=== PATIENT | male | born 1940 | race Caucasian/White ===

== ENCOUNTER 2025-03-13 04:55 | Inpatient (IN) | payer MEDICARE, MEDICAID, SELFPAY ==
[2025-03-13] VITALS (8 sets, daily range): BP systolic 157–179; BP diastolic 53–68; PULSE 51–80; RESP 17–30; TEMP 36.3–37.2; O2SAT 93–96; BMI 21.4
--- NOTE | 2025-03-13 05:10 | PD.EDRME ---
Rapid Medical Screening Exam E Arrival date/time: 03/13/25 04:55 RME Narrative: 84-year-old male without significant past medical history complains of a 4-day history of progressive shortness of breath. Some anterior lower chest pressure as well. No cardiac history. Patient has no significant past medical history. He does smoke cigarettes. He has never been diagnosed with emphysema. Exam: Somewhat dyspneic with distant breath sounds bilaterally Clinical Impression: Possible COPD versus pneumonia versus new onset CHF versus acute coronary syndrome versus pulmonary hypertension
--- NOTE | 2025-03-13 05:11 | EKG_ITS ---
[facility] Test Date: 2025-03-13 Pat Name: DUANE MENDEZ Department: Room: - Gender: Male Biological Science Technician: : 1940 Requested By: Duane Meyer Order Number: [id number] Reading MD: Duane Meyer Measurements Intervals [place] Rate: 51 P: AK: QRS: 41 QRSD: 75 T: 58 QT: 433 QTc: 401 Interpretive Statements SUPRAVENTRICULAR BRADYCARDIA MINIMAL VOLTAGE CRITERIA FOR LVH, CONSIDER NORMAL VARIANT [MEETS CRITERIA IN ONE OF: R(aVL), S(V1), R(V5), R(V5/V6)+S(V1)] SEPTAL MYOCARDIAL INFARCTION , OF INDETERMINATE AGE [40+ ms Q WAVE IN V1/V2] Compared to ECG 02/14/2023 09:32:03 Myocardial infarct finding now present Sinus rhythm no longer present /store/S0/[id number].pdf
--- NOTE | 2025-03-13 05:11 | XR_ITS ---
EXAMINATION: AP chest single view TECHNIQUE: AP portable upright chest single view Date and time: March 13, 2025, 0525 hours INDICATIONS: Chest pain today FINDINGS: Mild to moderate CHF Mild to moderate enlargement left ventricle Prominent vascular congestion including central vascular engorgement Diffuse interstitial pulmonary edema Severe osteopenia with old appearing deformity proximal humerus on the right IMPRESSION: Mild to moderate CHF
[2025-03-13 05:44] LABS: Basophils # (Auto) 0.1 Thou/mm3 (0.0-0.2); Basophils % (Auto) 1 % (0-2.5); Eosinophils # (Auto) 0.1 Thou/mm3 (0.0-0.5); Eosinophils % (Auto) 1 % (0-10); Hematocrit 33.8 % (41.0-53.0); Hemoglobin 10.9 g/dL (13.5-16.0); Immature Granulocytes Auto 0.03 Thou/mm3 (0.00-0.00); Lymphocytes # (Auto) 1.8 Thou/mm3 (1.0-4.8); Lymphocytes % (Auto) 17 % (10-50); Mean Corpuscular HGB Conc 32.2 g/dl (31.0-37.0); Mean Corpuscular Hemoglobin 31.1 pg (25.0-35.0); Mean Corpuscular Volume 97 fL (80-100); Monocytes # (Auto) 1.1 Thou/mm3 (0.0-0.8); Monocytes % (Auto) 10 % (0-12); Neutrophils # (Auto) 7.5 Thou/mm3 (1.8-7.7); Neutrophils % (Auto) 71 % (37-80); Nucleated Red Blood Cell # 0.00 Thou/mm3 (0.00-0.00); Nucleated Red Blood Cell % 0 /100 WBC (0); Platelet Count 317 Thou/mm3 (140-440); RDW Standard Deviation 46.8 fL (35.1-43.9); Red Blood Count 3.50 Miln/mm3 (4.50-5.90); White Blood Count 10.5 Thou/mm3 (3.8-10.6)
[2025-03-13 06:31] LABS: Alanine Aminotransferase 33 U/L (10-49); Albumin, Serum 4.3 gm/dL (3.4-4.8); Anion Gap 9 (7-16); Aspartate Amino Transferase 37 U/L (0-34); B-Type Natriuretic Peptide 1671 pg/mL (0-100); BUN/Creatinine Ratio 21 Ratio (12-20); Bilirubin,Total 0.4 mg/dL (0.3-1.2); Blood Urea Nitrogen 32 mg/dL (9-23); Calcium 9.4 mg/dL (8.3-10.6); Calcium (Corrected) 9.4 mg/dL (8.5-10.1); Carbon Dioxide 23.0 mMol/L (20.0-31.0); Chloride 102 mMol/L (98-107); Creatinine (Component) 1.5 mg/dL (0.6-1.3); Estimated Creatinine Clearance 34.1 mL/min (>60); Glucose 119 mg/dL (74-106); Osmolality,Calculated 276 (275-295); Potassium 5.2 mMol/L (3.4-5.1); Sodium 134 mMol/L (136-145); Total Protein 7.3 gm/dL (5.7-8.2); eGFR 46 See Note
[2025-03-13 06:32] LABS: Albumin/Globulin Ratio 1.4 (1.2-2.2); Alkaline Phosphatase 78 U/L (46-116); Globulin 3.0 gm/dL (2.3-3.5); Thyroid Stimulating Hormone 3.06 uIU/mL (0.55-4.78)
[2025-03-13 06:41] LABS: Troponin I 0.861 ng/mL (0.0-0.045)
--- NOTE | 2025-03-13 06:53 | PC.NURSE ---
Pt stating he wants to leave back to home. Dr. Feliz is aware and speaking with patient now.
--- NOTE | 2025-03-13 06:58 | PD.EDSOB ---
ED SOB =RME/HPI General Chief Complaint: Shortness of Breath/Dyspnea Stated Complaint: SOB Arrival date/time: 03/13/25 04:55 Limitations: no limitations RME / HPI RME / HPI Narrative: 84-year-old male without significant past medical history complains of a 4-day history of progressive shortness of breath. Some anterior lower chest pressure as well. No cardiac history. Patient has no significant past medical history. He does smoke cigarettes. He has never been diagnosed with emphysema. DR. ALLI VIDAL ED EVALUATION Patient is a 84 yo male with medical history notable for chronic smoking presents to the emergency department BIBA from home complaint of shortness of breath and chest pain. Patient additionally complains of malaise over the last 5 days. Symptoms including decreased appetite, headache, generalized weakness. No sick contacts. No known modifying factors. Exam: Somewhat dyspneic with distant breath sounds bilaterally Impression: Possible COPD versus pneumonia versus new onset CHF versus acute coronary syndrome versus pulmonary hypertension Related Data Home Medications ?Medication ?Instructions ?Recorded ?Confirmed hydrocodone 5 mg-acetaminophen 325 1 tab PO Q8H PRN pain 03/13/25 03/13/25 mg tablet Allergies Allergy/AdvReac Type Severity Reaction Status Date / Time No Known Allergies Allergy Unverified 02/15/23 10:07 Review of Systems Review of Systems Systems Reviewed: All systems reviewed, normal except as documented Past Medical History Past Medical History GENITOURINARY: Positive Genitourinary Disorders and Inguinal Hernia MUSCULOSKELETAL: Positive Musculoskeletal Disorders, Arthritis and Fractures (Right arm) ENT: Positive Cataracts and Retinal Detachment (scarring of retina, poor vision) Surgical History SURGICAL: Positive Eye Surgery (lever muscle surgery bilateral) Social History SMOKING STATUS: Light (< 1 pack/day) ED Exam General Limitations: Present no limitations General appearance: Present alert and other (chronically ill appearing) Head Head exam: Present atraumatic, normocephalic and normal inspection Eye Eye exam: Present normal appearance, PERRL and EOMI ENT ENT exam: Present normal exam, normal oropharynx and mucous membranes moist Neck Neck exam: Present normal inspection, full ROM and trachea midline Chest Chest inspection: Present normal inspection and symmetric chest wall rise Respiratory Respiratory exam: Present other (coarse breath sounds bilaterally ) Cardiovascular Cardiovascular exam: Present regular rate, normal rhythm, normal heart sounds and other (intact pulses upper and lower extremities ) Abdominal Exam Abdominal exam: Present soft and normal bowel sounds Extremities Exam Extremities exam: Present normal inspection, full ROM and other (intact pulses upper and lower extremities ) Back Exam Back exam: Present normal inspection and full ROM Neurological Exam Neurological exam: Present alert, oriented X3 and CN II-XII intact Psychiatric Psychiatric exam: Present normal affect and normal mood Skin Skin exam: Present warm, dry, intact and normal color Course Quality Measures none Orders Category Date Time Status EKG (ED ONLY) *Do not use* NOW Care 03/13/25 05:11 Completed EKG (ED Only) Stat Exams 03/13/25 05:11 Draft XR chest 1V portable Stat Exams 03/13/25 05:11 Completed BNP [B-Type Natriuretic Peptide] Stat Lab 03/13/25 05:20 Completed CBC Stat Lab 03/13/25 05:20 Completed CMP [Comprehensive Metabolic Panel] Stat Lab 03/13/25 05:20 Completed Thyroid Stimulating Hormone Stat Lab 03/13/25 05:20 Completed Troponin I Stat Lab 03/13/25 05:20 Completed ALBUTEROL RT 0.5ml [Proventil Rt 0.5ml] Med 03/13/25 05:11 Discontinued 10 mg INH X1 ONE Aspirin Med 03/13/25 07:10 Discontinued 325 mg PO X1 ONE Ipratropium Cookson Rt Liv [Atrovent Rt Liv] Med 03/13/25 05:11 Discontinued 1 mg INH X1 ONE MethylPREDNISolone. [SoluMEDROL Inj] Med 03/13/25 05:11 Discontinued 125 mg IV X1 ONE MethylPREDNISolone.* [SoluMEDROL Inj] Med 03/13/25 06:43 Discontinued 125 mg IM X1 ONE Sodium Chloride Rt Liv 0.9% [NS Rt Liv 0.9%] Med 03/13/25 05:11 Discontinued 3 ml INH PRN PRN Vital Signs Vital signs: Vital Signs Temperature 98.9 F 03/13/25 05:18 Pulse Rate 51 L 03/13/25 05:18 Respiratory Rate 28 H 03/13/25 05:18 Blood Pressure 162/53 H 03/13/25 05:18 Pulse Oximetry (%) 94 L 03/13/25 05:18 Shortness of Breath / Dyspnea MDM Narrative MDM Narrative:: Precious Brito am scribing for and in the presence of Dr. Feliz. Patient is a 84 yo male with medical history notable for chronic smoking is in emergency department with shortness of breath and chest pain. Vital signs and exam as listed. Ordered labs EKG chest x-ray offered medication for symptom relief. EKG performed today at 518 in the morning interpreted by me notable for third-degree heart block, heart rate 51, normal QT, nonspecific T wave changes, not a cardiac alert. Chest x-ray also interpreted by me without any focal consolidations effusions or infiltrates however evidence of prominent lung markings concerning for cephalization of vessels versus chronic lung disease. Troponin elevated to 0.861, BNP 1671. Patient has minimal lower extremity edema. Following breathing treatment, patient shortness of breath significantly improved. No longer having chest pain on my evaluation. 0702a: I spoke with contact lens fitter Dr. Mckenzie. Discussed patients PMHx, HPI, ED course, exam findings, labs, and radiology results. Recommends keeping the patient npo and will place a pacemaker. He agrees to consult. 0703a: I spoke with hospitalist team A for admission. Discussed patients PMHx, HPI, ED course, exam findings, labs, and radiology results. The hospitalist agree to accept the patient for admission. Total critical care time: Approximately?45?minutes Due to a high probability of clinically significant, life threatening deterioration, the patient required my highest level of preparedness to intervene emergently and I personally spent this critical care time directly and personally managing the patient. This critical care time included obtaining a history; examining the patient; pulse oximetry; ordering and review of studies; arranging urgent treatment with development of a management plan; evaluation of patient's response to treatment; frequent reassessment; and, discussions with other providers. This critical care time was performed to assess and manage the high probability of imminent, life-threatening deterioration that could result in multi-organ failure. It was exclusive of separately billable procedures and treating other patients and teaching time. Please see MDM section and the rest of the note for further information on patient assessment and treatment. Patient data External records reviewed:: [facility] previous records Clinical information provided by:: patient and EMS Social determinants that could affect healthcare access:: none Patient has the following chronic illnesses:: See MDM How is presenting disease/condition affected by chronic disease/condition?: no chronic disease Evaluation data The following diagnostics were reviewed and interpreted by me:: lab results, radiology exam(s) and EKG tracing(s) Lab and/or radiology exams considered but not ordered:: None Interpretation Summary: See MDM Medications / Prescriptions Medications or Prescriptions considered but not ordered:: None Medication administrations:: Medication Administration History Discontinued Medications Acetaminophen (Acetaminophen 325 Mg Tablet) 650 mg PO Q6H PRN; Protocol PRN Reason: Fever >100.4 or pain Stop: 04/12/25 07:43 Hydrocodone Bitart/Acetaminophen (Hydrocodone/Apap 5/325 Tablet) 1 tab PO Q4HR PRN PRN Reason: Pain Scale 6-10 Stop: 03/18/25 07:43 Albuterol (Albuterol Rt 2.5 Mg/0.5 Ml Nebu) 10 mg INH X1 ONE Stop: 03/13/25 05:12 Last Admin: 03/13/25 05:37 Dose: Not Given Documented By: JUAN Non-Admin Reason: Cancelled by Provider Albuterol (Albuterol Rt 2.5 Mg/0.5 Ml Nebu) 5 mg INH X1 ONE Stop: 03/13/25 07:56 Last Admin: 03/13/25 08:15 Dose: 5 mg Documented By: MARCOS Aspirin (Aspirin 325 Mg Tablet) 325 mg PO X1 ONE Stop: 03/13/25 07:11 Last Admin: 03/13/25 08:06 Dose: Not Given Documented By: COMFORT Non-Admin Reason: Cancelled by Provider Ipratropium Cookson (Ipratropium Rt 0.5 Mg/ 2.5 Ml Nebu) 1 mg INH X1 ONE Stop: 03/13/25 05:12 Last Admin: 03/13/25 05:37 Dose: Not Given Documented By: JUAN Non-Admin Reason: Cancelled by Provider Methylprednisolone Sodium Succinate (Methylprednisolone Sod 500 Mg/8 Ml Vial) 125 mg IV X1 ONE Stop: 03/13/25 05:12 Last Admin: 03/13/25 08:36 Dose: Not Given Documented By: BY Non-Admin Reason: Cancelled by Provider Methylprednisolone Sodium Succinate (Methylprednisolone Sod Succ 62.5 Mg/Ml 2ml Vial) 125 mg IM X1 ONE Stop: 03/13/25 06:44 Last Admin: 03/13/25 07:01 Dose: 125 mg Documented By: CHER Ondansetron HCl (Ondansetron Inj 2 Mg/Ml Inj 2 Ml) 4 mg IVP Q6H PRN; Protocol PRN Reason: NAUSEA OR VOMITING Stop: 04/12/25 07:43 Sodium Chloride (Sodium Chloride Rt Liv 0.9% 3 Ml Nebu) 3 ml INH PRN PRN PRN Reason: SOLN Stop: 04/12/25 05:10 Sodium Chloride (Sodium Chloride Rt Liv 0.9% 3 Ml Nebu) 3 ml INH PRN PRN PRN Reason: SOLN Stop: 04/12/25 07:54 See above Consultations Consultation(s) initiated? (list below): Yes Consultation #1 (Physician, Specialty, Details): See MDM Diagnosis Shortness of Breath Differential Diagnosis: acute exacerbation of chronic obstructive airways disease, congestive heart failure and community acquired pneumonia Most likely diagnosis given after review of the tests above:: See MDM Admission Indicated Admission indicated?: indicated Admission Request Was there a request for admission?: Yes Admission Attestation Admission request attestation: Discussed case with [] from Hospitalist service regarding admission. Discussed patients ED course, exam findings, labs, and radiology results. The Hospitalist [agrees,declines] to accept the patient for admission. Disposition Plan Disposition Plan: Admit Discharge Plan Plan Patient Disposition: Admit Acute Care w/in Hospital Problem List Clinical Impression: Third degree heart block, Elevated troponin, Elevated brain natriuretic peptide (BNP) level, Acute hypoxic respiratory failure, Chest pain
[2025-03-13] MEDS: MethylPREDNISolone SOD SUCC 62.5 MG/ML 2ML VIAL 125 MG IM (07:01)
--- NOTE | 2025-03-13 08:05 | PC.NURSE ---
Received a call from Boris, he stated to hold the Aspirin that had been ordered
[2025-03-13] MEDS: ALBUTEROL RT 2.5 MG/0.5 ML NEBU 5 MG INH (08:15)
[2025-03-13 08:29] LABS: Glucose Estimated Average 103 mg/dL (80-131); Hemoglobin A1C 5.2 % Hgb (4.8-6.0)
[2025-03-13 08:41] LABS: Cardiac Risk Estimate 3.1 RATIO (4.0-6.7); Cholesterol 144 mg/dL (132-200); HDL Cholesterol 46 mg/dL (40-60); LDL Cholesterol,Calculated 75 mg/dL (0-130); Triglycerides 116 mg/dL (30-150)
[2025-03-13 09:31] LABS: INR 1.0 (0.9-1.3); Partial Thromboplastin Time 33.3 Seconds (22.0-36.0); Prothrombin Time 10.9 Seconds (9.0-12.2)
[2025-03-13 10:27] LABS: Albumin, Serum 4.4 gm/dL (3.4-4.8); Anion Gap 13 (7-16); BUN/Creatinine Ratio 23 Ratio (12-20); Blood Urea Nitrogen 34 mg/dL (9-23); Calcium 9.8 mg/dL (8.3-10.6); Calcium (Corrected) 9.8 mg/dL (8.5-10.1); Carbon Dioxide 21.0 mMol/L (20.0-31.0); Chloride 101 mMol/L (98-107); Creatinine (Component) 1.5 mg/dL (0.6-1.3); Estimated Creatinine Clearance 34.1 mL/min (>60); Glucose 143 mg/dL (74-106); Osmolality,Calculated 279 (275-295); Phosphorous 4.1 mg/dL (2.4-5.1); Potassium 5.0 mMol/L (3.4-5.1); Sodium 135 mMol/L (136-145); eGFR 46 See Note
[2025-03-13 11:32] LABS: Troponin I 0.704 ng/mL (0.0-0.045)
--- NOTE | 2025-03-13 11:57 | PC.NURSE ---
Called MD to let them know pt wants to go AMA, Md will come to bedside
--- NOTE | 2025-03-13 12:00 | PC.NURSE ---
Pt alert and oriented, MD at bedside explained risks and gave education, CN aware Pt signed AMA form
--- NOTE | 2025-03-13 12:19 | ESCONSULT_ITS ---
HPI Data of Consult Requesting Physician: Thiago Cortes MD Primary Care Provider: Physician No Primary/Family Consult Narrative History of present illness: This is an 84-year-old gentleman with no significant past medical history not on any home medications except for analgesics on a as needed basis Patient was seen in the emergency room with a complaint of chest pain shortness of breath fatigue tiredness weakness Initial EKG shows heart rate is 51 third-degree AV block Troponin 0.8 repeat .7 Cardiology consultation requested Patient continues to smoke, currently appears stable no chest pain noted Patient wanting to sign out AMA cc:: cc: Thiago Cortes MD Meds Home Medications and Allergies Home Medications ?Medication ?Instructions ?Recorded ?Confirmed ?Type hydrocodone 5 mg-acetaminophen 325 1 tab PO Q8H PRN pa in 03/13/25 03/13/25 History mg tablet Allergies Allergy/AdvReac Type Severity Reaction Status Date / Time No Known Allergies Allergy Unverified 02/15/23 10:07 Exam Vital Signs Temp Pulse Resp BP Pulse Ox O2 Del Method O2 Flow Rate 97.3 F 80 24 H 166/65 H 96 Nasal Cannula 3 03/13/25 11:30 03/13/25 11:30 03/13/25 11:30 03/13/25 11:30 03/13/25 11:30 03/13/25 11:30 03/13/25 11:30 Routine HEENT Exam Head: Present normocephalic and atraumatic Eye: Present EOMI and PERRL ENT: Present mucous membranes moist Routine Neck Exam Neck: Present supple and trachea midline Routine Respiratory Exam Respiratory: Present chest non-tender, lungs clear, normal breath sounds and no resp distress Routine Cardiovascular Exam Cardiovascular: Present RRR Routine Abdominal Exam Abdominal: Present soft and normoactive bowel sounds Routine Extremities Exam Extremities: Present full ROM Routine Skin Exam Skin: Present intact, dry and warm Routine Neurological Exam Neurological: Present alert, oriented X3 and CN II-XII intact Routine Psychiatric Exam Psychiatric: Present normal affect and normal thought process Results Labs 03/13/25 05:20 03/13/25 09:50 Labs: Short CBC 03/13/25 Range/Units 05:20 WBC 10.5 (3.8-10.6) Thou/mm3 Hgb 10.9 L (13.5-16.0) g/dL Hct 33.8 L (41.0-53.0) % Plt Count 317 (140-440) Thou/mm3 BMP 03/13/25 03/13/25 05:20 09:50 Sodium 134 L 135 L Potassium 5.2 H 5.0 Chloride 102 101 Carbon Dioxide 23.0 21.0 BUN 32 H 34 H Creatinine 1.5 H 1.5 H Glucose 119 H 143 H Calcium 9.4 9.8 Cardiac Enzymes 03/13/25 03/13/25 Range/Units 05:20 10:56 Troponin I 0.861 H* 0.704 H* (0.0-0.045) ng/mL Liver Function 03/13/25 03/13/25 Range/Units 05:20 09:50 Total Bilirubin 0.4 (0.3-1.2) mg/dL AST 37 H (0-34) U/L ALT 33 (10-49) U/L Alkaline Phosphatase 78 (46-116) U/L Albumin 4.3 4.4 (3.4-4.8) gm/dL Assessment and Plan Assessment and plan (1) Chest pain: Status: Acute (2) Acute hypoxic respiratory failure: Status: Acute (3) Elevated brain natriuretic peptide (BNP) level: Status: Acute (4) Third degree heart block: Status: Acute (5) Elevated troponin: Status: Acute Additional Assessment & Plan Additional Plan: Patient will require further evaluation with heart catheterization and possibly intervention 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
--- NOTE | 2025-03-13 12:23 | PD.RESEVENT ---
Documentation for date of: 03/13/25 Event Note Event Note: 84-year-old male admitted this morning in view of heart block. Nurse called me around 12 PM as patient wants to leave AGAINST MEDICAL ADVICE. Went to talk to the patient with ICU charge nurse, Ignacia and RN of the patient at the bedside. Patient has already dressed up by the time I went to see the patient. Alert, oriented to time, place and person. Reported that he was in the hospital over the last 12 hours and did not get anything to eat and does not want to stay in the hospital anymore. Explained about the heart block and the risks of sudden cardiac , syncopal episodes and all possible consequences to the patient. Patient understood all the consequences. Despite explaining everything, patient wants to leave AGAINST MEDICAL ADVICE. Tried to call the person to notify, who is his friend, David Duong but couldnt reach him. I have personally seen and examined the patient, agree with residents assessment and plan Patient plan of care was discussed with the attending physician, Dr. Sophia Borges, PGY2
--- NOTE | 2025-03-13 12:36 | ESHP_ITS ---
<Statement entered by Jake Borges MD - 03/13/25 16:18> I have personally seen and examined the patient, agree with residents assessment and plan Patient plan of care was discussed with the attending physician, Dr. Sophia Borges, PGY2 Documentation for date of: 03/13/25 HPI History of Present Illness Chief complaint: Chest pain, shortness of breath. History of present illness: 84-year-old male with a significant history of chronic smoking (~? pack/day), presenting with 4 days of progressive shortness of breath and anterior lower chest pressure. Symptoms began on Tuesday, initially with dyspnea, followed by worsening fatigue and poor appetite. He was unable to tolerate oral intake and reports significant weakness, especially over the past few days. The patient has been feeling progressively more fatigued and unable to perform daily activities. He denies fever, chills, syncope, or leg swelling. Chest pain began yesterday night and resolved after a breathing treatment in the ED. The patient has no known history of cardiac disease or COPD, though he has a history of chronic smoking. He was hypoxic (88%) on arrival and improved to 93% on 6L oxygen. EKG revealed third-degree heart block with a heart rate of 51 bpm and an elevated BNP of 1671. A chest X-ray suggested mild to moderate CHF. Troponin was mildly elevated at 0.861. The patient has minimal lower extremity edema, and his chest pain has resolved. Cardiology (Dr. Mckenzie) has recommended pacemaker placement, which is scheduled for today. Past Medical History * Chronic smoking (~? pack/day) * No history of cardiac disease * No history of COPD, asthma, or emphysema Medications * Naros (pain medication for back) ? 3 tablets/day (5mg each) * No other medications reported Allergies * No known drug allergies Social History * Lives alone * Tobacco use: ? pack/day * Alcohol use: Daily whiskey/beer consumption * No illicit drug use * No recent travel Exam Vital Signs Temp Pulse Resp BP Pulse Ox O2 Del Method O2 Flow Rate 97.4 F 75 30 H 179/68 H 95 Room Air 3 03/13/25 12:00 03/13/25 12:00 03/13/25 12:00 03/13/25 12:00 03/13/25 12:00 03/13/25 12:00 03/13/25 11:30 Narrative Exam General: 84-year-old male, alert, fatigued but in no acute distress Cardiovascular: Regular rhythm, bradycardia (51 bpm), no murmurs Respiratory: Mild dyspnea with distant breath sounds bilaterally. No wheezing or crackles on auscultation Abdomen: Soft, non-distended, non-tender Neurological: Alert and oriented, no focal deficits Extremities: No swelling or edema Results: Labs 03/13/25 05:20 03/13/25 09:50 Labs: Short CBC 03/13/25 Range/Units 05:20 WBC 10.5 (3.8-10.6) Thou/mm3 Hgb 10.9 L (13.5-16.0) g/dL Hct 33.8 L (41.0-53.0) % Plt Count 317 (140-440) Thou/mm3 BMP 03/13/25 03/13/25 05:20 09:50 Sodium 134 L 135 L Potassium 5.2 H 5.0 Chloride 102 101 Carbon Dioxide 23.0 21.0 BUN 32 H 34 H Creatinine 1.5 H 1.5 H Glucose 119 H 143 H Calcium 9.4 9.8 Cardiac Enzymes 03/13/25 03/13/25 Range/Units 05:20 10:56 Troponin I 0.861 H* 0.704 H* (0.0-0.045) ng/mL Liver Function 03/13/25 03/13/25 Range/Units 05:20 09:50 Total Bilirubin 0.4 (0.3-1.2) mg/dL AST 37 H (0-34) U/L ALT 33 (10-49) U/L Alkaline Phosphatase 78 (46-116) U/L Albumin 4.3 4.4 (3.4-4.8) gm/dL Quality Measures Quality Measures VTE prophylaxis Advance care planning discussed with:: patient Medications Home Medications and Allergies Home Medications ?Medication ?Instructions ?Recorded ?Confirmed ?Type hydrocodone 5 mg-acetaminophen 325 1 tab PO Q8H PRN pa in 03/13/25 03/13/25 History mg tablet Allergies Allergy/AdvReac Type Severity Reaction Status Date / Time No Known Allergies Allergy Unverified 02/15/23 10:07 Visit Medications Discontinued Medications Acetaminophen (Acetaminophen 325 Mg Tablet) 650 mg PO Q6H PRN; Protocol PRN Reason: Fever >100.4 or pain Stop: 04/12/25 07:43 Hydrocodone Bitart/Acetaminophen (Hydrocodone/Apap 5/325 Tablet) 1 tab PO Q4HR PRN PRN Reason: Pain Scale 6-10 Stop: 03/18/25 07:43 Albuterol (Albuterol Rt 2.5 Mg/0.5 Ml Nebu) 10 mg INH X1 ONE Stop: 03/13/25 05:12 Last Admin: 03/13/25 05:37 Dose: Not Given Albuterol (Albuterol Rt 2.5 Mg/0.5 Ml Nebu) 5 mg INH X1 ONE Stop: 03/13/25 07:56 Last Admin: 03/13/25 08:15 Dose: 5 mg Aspirin (Aspirin 325 Mg Tablet) 325 mg PO X1 ONE Stop: 03/13/25 07:11 Last Admin: 03/13/25 08:06 Dose: Not Given Ipratropium [place] (Ipratropium Rt 0.5 Mg/ 2.5 Ml Nebu) 1 mg INH X1 ONE Stop: 03/13/25 05:12 Last Admin: 03/13/25 05:37 Dose: Not Given Methylprednisolone Sodium Succinate (Methylprednisolone Sod 500 Mg/8 Ml Vial) 125 mg IV X1 ONE Stop: 03/13/25 05:12 Last Admin: 03/13/25 08:36 Dose: Not Given Methylprednisolone Sodium Succinate (Methylprednisolone Sod Succ 62.5 Mg/Ml 2ml Vial) 125 mg IM X1 ONE Stop: 03/13/25 06:44 Last Admin: 03/13/25 07:01 Dose: 125 mg Ondansetron HCl (Ondansetron Inj 2 Mg/Ml Inj 2 Ml) 4 mg IVP Q6H PRN; Protocol PRN Reason: NAUSEA OR VOMITING Stop: 04/12/25 07:43 Sodium Chloride (Sodium Chloride Rt Liv 0.9% 3 Ml Nebu) 3 ml INH PRN PRN PRN Reason: SOLN Stop: 04/12/25 05:10 Sodium Chloride (Sodium Chloride Rt Liv 0.9% 3 Ml Nebu) 3 ml INH PRN PRN PRN Reason: SOLN Stop: 04/12/25 07:54 Assessment & Plan Plan 84-year-old male, previously healthy with chronic smoking history, presenting with 4 days of progressive dyspnea and chest pressure, found to have symptomatic supraventricular bradycardia with high-grade/third-degree AV block, today will be undergoing pacemaker placement by cardiology. #Third-Degree AV Block #Symptomatic Bradycardia The patient presents with third-degree heart block, symptomatic bradycardia with a heart rate of 51 bpm, and symptoms of dyspnea and weakness. My interpretation of the ECG shows visible P waves with no conducting relationship to QRS complexes, demonstrating complete A-V dissociation with a regular narrow escape rhythm in the 50s, my clinical judgment supports third- degree AV block, not confirmed by cardiology. Plan: * Proceed with pacemaker placement today by Dr. Mckenzie (Cardiology) * Continue external pacing pads until the pacemaker is placed * Avoid AV-jay blockers (beta-blockers, calcium channel blockers) prior to pacemaker * Post-procedure monitoring on telemetry #Elevated Troponin Troponin 0.861, suggesting possible myocardial injury, though no ischemic symptoms. Plan: * Repeat troponin to monitor trend * Evaluate need for antiplatelet therapy based on cardiology recs post pacemaker placement. #Acute Kidney Injury (CYNTHIA) vs CKD? Cr 1.5, increased from baseline 1.0 in 2022 Likely CYNTHIA or progression of CKD. Patient has not seen a PCP in years. Plan: * Monitor renal function closely, repeat BMP in 24 hours * Ensure renal-friendly medications and avoid nephrotoxins (NSAIDs, contrast media unless emergent) * Encourage adequate hydration, avoid over-diuresis #Hyperkalemia Potassium 5.2, improved post-albuterol. Plan: * Repeat potassium after 6 hours, consider potassium binder if persistent #Chronic Tobacco Use Chronic smoking likely contributing to respiratory and cardiac issues. Plan: * Discuss smoking cessation prior to discharge * Offer nicotine replacement during hospitalization #Alcohol Use Daily whiskey consumption Plan: * Monitor for signs of alcohol withdrawal (CIWA if symptoms develop) Health Maintenance: Disposition: Admit to Internal Medicine for ongoing monitoring and pacemaker placement Diet: NPO until pacemaker procedure Code status: Full code ----- Plan discussed with attending physician Dr. Cortes and senior resident Dr. Jony Turk MD PGY-1 Internal Medicine Attending Provider Attestation/Addendum I have examined the patient, reviewed labs and imaging findings, discussed the case with the resident(s), and reviewed entered orders. I agree with the plan of care as outlined in this note, with these additional summaries/recommendations: After examination of the patient and review of the clinical data, I feel that this patient needs admission to the hospital for further treatment and evaluation. Patient is an 84-year-old male with a medical history of chronic tobacco use and history of not seeing medical providers presents to [facility] emergency department on 03/13/2025 with nonspecific complaints. Patient was found to have high-grade AV block in the emergency room and borderline symptomatic bradycardia. Pacer pads were placed although were not turned on. Blood pressure stable. Cardiology was consulted and recommended placing patient n.p.o. with plans for pacemaker placement today. Troponin elevated to 0.861 likely NSTEMI type II in the setting of bradycardia versus less likely type I. Cardiology consulted, recommendations appreciated. Patient diagnosed with CYNTHIA on CKD. On admission creatinine 1.5 and baseline appears to be 1.0. Mild hyperkalemia present. Avoid nephrotoxic agents and renally dose medications. If renal function worsens we will consult nephrology. Patient did receive albuterol breathing treatment in the emergency room for hyperkalemia and will repeat level this afternoon. I was called by the medical team that patient would like to leave AGAINST MEDICAL ADVICE. I immediately went to go see the patient although he had already left prior to my arrival. During patient's stay he made multiple statements that he would like to leave AGAINST MEDICAL ADVICE. Each time patient was counseled extensively on the importance of staying in the hospital with close proximity of nurses and heart doctor. Patient was counseled on multiple occasions and by medical team prior to my arrival that he is at risk of permanent disability and . Patient was alert and oriented and able to state this back to the medical team. I made multiple attempts to contact patient by telephone which were unsuccessful. Patient is welcome to return to the emergency room at any time. Dr. Sophia MD
== END 2025-03-13 12:08 | disposition left against medical advice (07) | DRG 309 ==
LOC: SERX 07:07 → SERHOLD 08:02 → S2NX 11:14
PROVIDERS: Emergency Medicine; Internal Medicine; Admitting Provider Student in an Organized Health Care Education/Training Program; Emergency Provider Emergency Medicine; Visit Provider Student in an Organized Health Care Education/Training Program
DX: I44.2 Atrioventricular block, complete (principal); N17.9 Acute kidney failure, unspecified; F17.210 Nicotine dependence, cigarettes, uncomplicated; R00.1 Bradycardia, unspecified; E87.5 Hyperkalemia; N18.9 Chronic kidney disease, unspecified; Z71.6 Tobacco abuse counseling; Z95.0 Presence of cardiac pacemaker; Z53.29 Procedure and treatment not carried out because of patient's decision for other reasons
CPT/HCPCS: 36415; 71045; 80053; 80061; 80069; 83036; 83880; 84443; 84484; 85025; 85610; 85730; 93005; 94640; 96372; 99284; J2919